=== PATIENT | male | born 1950 | race Caucasian/White ===

== ENCOUNTER 2023-09-07 06:58 | Day surgery (SDC) | payer MEDICARE, BC ==
[2023-09-07] VITALS (11 sets, daily range): BP systolic 116–137; BP diastolic 58–78; PULSE 56–67; RESP 14–17; TEMP 98; O2SAT 94–97
[~2023-09-07] VITALS: Ht 170.2 cm; Wt 100.4 kg
[~2023-09-07 06:58] MED LIST: ASPI81TA44 PO; ATOR20TA PO; MULT-38 PO
[2023-09-07] MEDS ORDERED: normal saline 1,000 ML IV SCH (07:20)
[2023-09-07] MEDS ORDERED: sodium bicarbonate 1meq/ml syr 150 ML in dextrose 5%-water 1,000 ML IV SCH (07:20)
[2023-09-07] MEDS ORDERED: diphenhydrAMINE 25mg capsule PO PRN (07:20)
[2023-09-07] MEDS ORDERED: FLO0.4C PO (07:21)
[2023-09-07] MEDS ORDERED: ROSU40TA22 PO (07:21)
[2023-09-07] MEDS ORDERED: EZET10TA48 PO (07:21)
[2023-09-07] MEDS ORDERED: UBID100C16 PO (07:22)
[2023-09-07 08:07] LABS: BASOPHILS % (AUTO) 0.4 % (0-1); EOSINOPHILS # (AUTO) 0.1 X10'3 (0-0.9); EOSINOPHILS % (AUTO) 1.8 % (0-6); HEMATOCRIT 41.3 % (42.0-52.0); HEMOGLOBIN 14.2 g/dl (14.0-17.9); LYMPHOCYTES # (AUTO) 1.6 X10'3 (1.1-4.8); LYMPHOCYTES % (AUTO) 31.9 % (21-51); MEAN CORPUSCULAR HEMOGLOBIN 31.7 PG (27.0-31.0); MEAN CORPUSCULAR HGB CONC 34.4 g/dL (33.0-36.5); MEAN PLATELET VOLUME 7.5 FL (7.4-10.4); MONOCYTES # (AUTO) 0.4 X10'3 (0-0.9); MONOCYTES % (AUTO) 8.2 % (2-12); NEUTROPHILS # (AUTO) 2.8 X10'3 (1.8-7.7); NEUTROPHILS % (AUTO) 57.7 % (42-75); PLATELET COUNT 191 X10'3 (140-440); RED BLOOD COUNT 4.48 X10'6 (4.70-6.10); RED CELL DISTRIBUTION WIDTH 13.4 % (11.5-14.5); WHITE BLOOD COUNT 4.9 X10'3 (4.5-11.0)
[2023-09-07 08:11] LABS: PROTHROMBIN TIME 10.4 SECONDS (9.0-12.0)
[2023-09-07 08:53] LABS: ALBUMIN 3.3 G/DL (3.4-5.0); ANION GAP 9 (8-16); BLOOD UREA NITROGEN 16 MG/DL (7-18); BUN/CREATININE RATIO 17.8 (10.0-20.0); CALCIUM 8.7 MG/DL (8.5-10.1); CHLORIDE 105 MMOL/L (99-107); GLUCOSE 143 MG/DL (70-104); POTASSIUM 4.1 MMOL/L (3.5-5.1); SODIUM 139 MMOL/L (135-145); TOTAL CARBON DIOXIDE 24.6 MMOL/L (24-32); eCRCL 69 ML/MIN; eGFR 83 ML/MIN
[2023-09-07] MEDS ORDERED: LIDOcaine 1% (10mg/ml) 2ml vial ONE (09:47)
[2023-09-07] MEDS ORDERED: verapamil 2.5 mg/ml inj IV ONE (09:47)
[2023-09-07] MEDS ORDERED: midazolam 1 mg/ML 2ml injection ONE ×2 (09:47→10:19)
[2023-09-07] MEDS ORDERED: fentaNYL/PF 50MCG/1 ML 2ML syringe ONE (09:47)
[2023-09-07] MEDS ORDERED: heparin 1,000unit/ml 10ml vial 10 ML ONE (09:48)
[2023-09-07] MEDS ORDERED: iohexol 350MG/ML 100ml bottle IV ONE ×2 (09:48→10:46)
[2023-09-07] MEDS ORDERED: iohexol 350 MG/ML 50ML vial IV ONE ×2 (09:48→10:37)
[2023-09-07] MEDS ORDERED: nitroGLYCERIN 500mcg/5mL D5W 5 ML IV ONE (09:52)
[2023-09-07] MEDS ORDERED: LIDOcaine 1% 30ml preserv. free vial ONE (10:48)
[2023-09-07] MEDS ORDERED: ticagrelor 90mg tablet ONE (11:15)
[2023-09-07] MEDS ORDERED: proCHLORperazine 10 MG/2 ml inj IV PRN (12:00)
[2023-09-07] MEDS ORDERED: HYDROcodone/acetaminophen 5mg/325mg tablet PO PRN (12:00)
[2023-09-07] MEDS ORDERED: acetaminophen 325mg tablet PO PRN (12:00)
[2023-09-07] MEDS ORDERED: HYDROcodone/acetaminophen 10/325mg tab PO PRN (12:00)
[2023-09-07] MEDS ORDERED: ondansetron/PF 4mg/2ml inj IV PRN (12:00)
== END 2023-09-07 16:05 | disposition home or self-care (01) ==
LOC: SSTAY O 06:58
PROVIDERS: ATTEND Internal Medicine Cardiovascular Disease
DX: I25.10 Atherosclerotic heart disease of native coronary artery without angina pectoris (principal); E78.5 Hyperlipidemia, unspecified; I48.0 Paroxysmal atrial fibrillation; I48.92 Unspecified atrial flutter; I10 Essential (primary) hypertension; I25.2 Old myocardial infarction; Z79.899 Other long term (current) drug therapy; Z95.5 Presence of coronary angioplasty implant and graft
CPT/HCPCS: 36415; 80048; 83735; 85025; 85610; 93005; 93458; 99152; 99153; C1874; C9600; J1644; J2250; J3010; J3490; J7030; J7070; Q0163; Q9967; A6258; A6402; A6449; C1725; C1751; C1769; C1894